=== PATIENT | male | born 1955 | race Caucasian/White ===

== ENCOUNTER 2022-07-27 07:58 | Outpatient (RCR) | payer MEDICARE, SELFPAY | END 2022-09-25 16:00 | disposition home or self-care (01) | LOC: HO.WCC 07:58 | PROVIDERS: Referring Provider Radiology Radiation Oncology; Visit Provider Surgery | DX: T23.361A Burn of third degree of back of right hand, initial encounter (principal); T31.0 Burns involving less than 10% of body surface; C44.612 Basal cell carcinoma of skin of right upper limb, including shoulder; C25.0 Malignant neoplasm of head of pancreas; Z92.21 Personal history of antineoplastic chemotherapy; Z79.891 Long term (current) use of opiate analgesic; Z79.899 Other long term (current) drug therapy | CPT/HCPCS: 11042; 11106; 16020; 88304; 88305; 97597; 97598; 99212 ==

== ENCOUNTER 2023-01-02 08:56 | Outpatient (RCR) | payer MEDICARE, SELFPAY | END 2023-01-04 15:01 | disposition home or self-care (01) | LOC: HO.WCC 08:56 | PROVIDERS: Visit Provider Physician Assistant | DX: C44.622 Squamous cell carcinoma of skin of right upper limb, including shoulder (principal); C25.0 Malignant neoplasm of head of pancreas; L98.8 Other specified disorders of the skin and subcutaneous tissue; Z92.3 Personal history of irradiation | CPT/HCPCS: 99212 ==